=== PATIENT | male | born 1935 | race Caucasian/White ===

== ENCOUNTER 2016-06-02 13:40 | Emergency (ER) | payer MEDICARE | END 2016-06-02 15:54 | disposition home or self-care (01) | LOC: D.ER 13:40 | DX: S43.401A Unspecified sprain of right shoulder joint, initial encounter (principal); X58.XXXA Exposure to other specified factors, initial encounter; Y93.9 Activity, unspecified; Y92.019 Unspecified place in single-family (private) house as the place of occurrence of the external cause; S43.402A Unspecified sprain of left shoulder joint, initial encounter ==

== ENCOUNTER 2016-07-22 08:14 | Emergency (ER) | payer MEDICARE | END 2016-07-22 09:51 | disposition home or self-care (01) | LOC: D.ER 08:14 | DX: M25.512 Pain in left shoulder (principal); M25.511 Pain in right shoulder ==

== ENCOUNTER → 2016-07-28 12:45 | Outpatient (CLI) | payer MEDICARE | END | disposition home or self-care (01) | LOC: D.MRI 12:45 | DX: M75.41 Impingement syndrome of right shoulder (principal) ==

== ENCOUNTER 2016-09-03 13:19 | Emergency (ER) | payer MEDICARE | END 2016-09-03 16:45 | disposition home or self-care (01) | LOC: D.ER 13:19 | DX: M79.642 Pain in left hand (principal); M79.641 Pain in right hand; M19.042 Primary osteoarthritis, left hand; M19.041 Primary osteoarthritis, right hand ==